=== PATIENT | female | born 1955 | race Caucasian/White ===

== ENCOUNTER 2016-09-26 14:55 | Observation (INO) | payer MEDICARE ==
[2016-09-26 14:55] VITALS: BMI 32.5
[2016-09-26 16:25] LABS: AUTOMATED BASOPHIL 0.2 % (0-2); AUTOMATED MONOCYTE 7.1 % (3-10); AUTOMATED NEUTROPHIL 71.7 % (45-76); MPV 9.5 fL (7.4-10.4)
[2016-09-26 16:35] LABS: BLOOD UREA NITROGEN 15 MG/DL (7-17); CALC CORRECTED 9.4 MG/DL (8.4-10.2); CALCIUM 9.2 MG/DL (8.4-10.2); CALCULATED OSMOLALITY 269 MOs/Kg (270-290); CHLORIDE 104 mEq/L (98-107); ETOH-MGDL < 10 mg/dL; GLUCOSE 83 MG/DL (70-99); SODIUM LEVEL 140 mEq/L (137-146); TOTAL PROTEIN 6.8 G/DL (6.3-8.2)
--- NOTE | 2016-09-26 18:05 | EDPRACDOC ---
- General Information Chief Complaint: Psychiatric Illness Stated Complaint: PSYCH IVC Time Seen by Provider: 09/26/16 17:53 Mode of Arrival: Car Home Medications: Home Medications Clonazepam [Klonopin] 1 mg PO BID 02/07/16 Allergies/Adverse Reactions: Allergies Allergy/AdvReac Type Severity Reaction Status Date / Time No Known Allergies Allergy Verified 09/26/16 15:24 - History of Present Illness Onset: ON-GOING HPI: Pt states her son IVC her due to alleged SI. Pt denies SI, HI, hallucinations. Pt c/o depression and not able to take meds due to financial reasons. C/o yeast rash to L inguinal area. Denies fever, cough, congestion, cp, sob, abd pain, n/v , changes in bowel or bladder. Reason for Seeking Treatment: Family Presents With: Reports: Depression Expresses: Denies: Suicidal Intent, Suicidal Plan, Left Suicide Note, None, SUIC , U, O Suicidal Plan: Denies: Overdose, Laceration, Gun, None, Other, U Suicidal Attempt: Denies: Laceration, N, GSW, Hanging, Carbon Monoxide, Other, U Stressors: Reports: Financial Relevant History: Reports: Depression Medication Compliance: No Able to Care for Self: Yes Able to Control Self: Yes Associated Signs and Symptoms: Reports: Depression, Hopeless ED Past Medical History - History Reviewed Yes Nurses notes reviewed and agree except as marked - Patient Medical History Musculoskeletal History: Reports: Arthritis Systemic History: Denies: Cancer - Social Medical History Smoking Status: Heavy tobacco smoker (5 or more cigarettes/day or daily pipe/ cigar) ETOH: None Substance Abuse: None EDM Review of Systems - Review of Systems Constitutional: No Symptoms Reported. negative: Fever, Chills, Weakness, Fatigue, Loss of Appetite Ears: No Symptoms Reported. negative: Pain, Hearing Loss, Drainage, Ear Pulling Throat: No Symptoms Reported. negative: Pain, Swelling Nose: No Symptoms Reported. negative: Congestion, Bleeding, Discharge, Injection, Swelling, Deformity, Ecchymosis, Tender, Abrasion, Laceration Mouth: No Symptoms Reported. negative: Pain, Drooling Respiratory: No Symptoms Reported. negative: Cough, Brassy Cough, Barky Cough, Shortness of Breath, Wheezing, Hemoptysis Cardiovascular: No Symptoms Reported. negative: Chest Pain, Palpitations, Syncope, Edema, Orthopnea, PND, Skin Mottling, Cyanosis Gastrointestinal: No Symptoms Reported. negative: Pain, Constipation, Nausea, Vomiting, Diarrhea, Melena, Formula Intolerance Genitourinary: No Symptoms Reported. negative: Dysuria, Hematuria, Frequency, Discharge, Bleeding, Testicular Pain, Neurological: No Symptoms Reported. negative: Headache, Dizziness, Seizure, Numbness, Weakness, Speech Difficulty, Gait Difficulty Musculoskeletal: No Symptoms Reported. negative: Neck, Chestwall, Ribs, Back, Shoulder, Arm, Elbow, Forearm, Wrist, Hand, Pelvis, Hip, Femur, Knee, Leg, Ankle , Foot Integumentary: Rash Allergic/Immunologic: No Symptoms Reported. negative: Hives, Itching Hematologic: No Symptoms Reported. negative: Lymphadenopathy, Easy Bruising, Easy Bleeding Psychiatric: Depression - Physical Exam Constitutional: Alert Oriented to: Time, Person, Place Last recorded Vital Signs: Last Vital Signs Temp 97.8 F 09/26/16 15:21 Pulse 65 09/26/16 15:21 Resp 20 09/26/16 15:21 BP 182/78 H 09/26/16 15:21 Pulse Ox 97 09/26/16 15:21 Oxygen Pulse Oxygen Saturation 97 O2 Device Room Air Oxygen Flow Rate Fraction of Inspired Oxygen ( FIO2) - HEENT Head: Normal ( normocephalic) Eye Exam: Normal (PERRL, EOMI, Sclera white) Oropharynx: Normal (Pharynx:Moist without exudate,Gums-no swelling) Tympanic Membrane: Normal ENT EAC: Normal TMJ: Normal Nose: No Symptoms Reported (septum midline) Neck: Normal (FROM, trachea at midline) - Respiratory/Cardiovascular Respiratory: Normal - CTA (BBS clear to auscultation without adventitious sounds ) Cardiovascular: Normal (RRR without murmur, gallop or rub) - GI Auscultation: Normal (NABS) Palpation: Normal (Soft,No rebound or guarding, non distended) Tenderness: Non tender Diamond's Sign: Negative - Musculoskeletal Back: Normal (Non-Tender) Extremities: Normal (Normal tone, Pulses 2+ No cyanosis or edema, FROM) - Integumentary Skin: Normal, Warm, Dry Lymphatics: Inguinal Erythema - Neurologic Memory Impaired: Normal Motor Function: Normal (Normal tone, Pulses 2+ No cyanosis or edema, FROM) Mood Description: Depressed Perception: Normal Initial Evaluation Apperance: Soiled Attitude: Cooperative Mood: Euthymic Affect: Congruent w/ mood Insight: Good Judgement: Good Memory Description: Intact Depressive Symptoms: Reports: Hopelessness, Sadness Delusion Description: Reports: Not Present Hallucination Type: Reports: None Hallucinations Severity: Reports: None Hallucinations affecting more than one sensory system: No - Differential Diagnosis Depression - Results 09/26/16 15:22 09/26/16 15:22 WBC 8.1 xk/uL (3.8-10.8) 09/26/16 15:22 RBC 5.20 xM/uL (4.20-5.40) 09/26/16 15:22 Hgb 15.4 g/dL (12.0-16.0) 09/26/16 15:22 Hct 45.9 % (36-47) 09/26/16 15:22 MCV 88 fL (81-99) 09/26/16 15:22 MCH 29.6 pg (27-32) 09/26/16 15:22 MCHC 33.6 g/dl (33-36) 09/26/16 15:22 RDW 13.3 % (11.5-14.5) 09/26/16 15:22 Plt Count 189 xk/uL (130-400) 09/26/16 15:22 MPV 9.5 fL (7.4-10.4) 09/26/16 15:22 Neut % (Auto) 71.7 % (45-76) 09/26/16 15:22 Lymph % (Auto) 19.0 % (17-44) 09/26/16 15:22 Stanley % (Auto) 7.1 % (3-10) 09/26/16 15:22 Eos % (Auto) 2.0 % (0-5) 09/26/16 15:22 Baso % (Auto) 0.2 % (0-2) 09/26/16 15:22 Absolute Neuts (auto) 5.75 xk/uL (1.7-8.2) 09/26/16 15:22 Absolute Lymphs (auto) 1.54 xk/uL (0.65-4.75) 09/26/16 15:22 Sodium 140 mEq/L (137-146) 09/26/16 15:22 Potassium 4.0 mEq/L (3.5-5.1) 09/26/16 15:22 Chloride 104 mEq/L (98-107) 09/26/16 15:22 Carbon Dioxide 28 mMOL/L (22-33) 09/26/16 15:22 Anion Gap 12 mEq/L (8-16) 09/26/16 15:22 BUN 15 MG/DL (7-17) 09/26/16 15:22 Creatinine 0.60 MG/DL (0.52-1.04) 09/26/16 15:22 Estimated GFR (MDRD) > 60 mL/min (>=60) 09/26/16 15:22 Glucose 83 MG/DL (70-99) 09/26/16 15:22 Calculated Osmolality 269 MOs/Kg (270-290) L 09/26/16 15:22 Calcium 9.2 MG/DL (8.4-10.2) 09/26/16 15:22 Corrected Calcium 9.4 MG/DL (8.4-10.2) 09/26/16 15:22 Total Bilirubin 0.3 MG/DL (0.2-1.3) 09/26/16 15:22 AST 17 IU/L (14-36) 09/26/16 15:22 ALT 20 IU/L (9-52) 09/26/16 15:22 Alkaline Phosphatase 111 IU/L (55-165) 09/26/16 15:22 Total Protein 6.8 G/DL (6.3-8.2) 09/26/16 15:22 Albumin 3.8 G/DL (3.5-5.0) 09/26/16 15:22 Plasma/Serum Ethyl Alc % (<0.01) 09/26/16 15:22 Lab Results 09/26/16 09/26/16 15:22 15:22 WBC 8.1 RBC 5.20 Hgb 15.4 Hct 45.9 MCV 88 MCH 29.6 MCHC 33.6 RDW 13.3 Plt Count 189 MPV 9.5 Neut % (Auto) 71.7 Lymph % (Auto) 19.0 Stanley % (Auto) 7.1 Eos % (Auto) 2.0 Baso % (Auto) 0.2 Absolute Neuts (auto) 5.75 Absolute Lymphs (auto) 1.54 Sodium 140 Potassium 4.0 Chloride 104 Carbon Dioxide 28 Anion Gap 12 BUN 15 Creatinine 0.60 Estimated GFR (MDRD) > 60 Glucose 83 Calculated Osmolality 269 L Calcium 9.2 Corrected Calcium 9.4 Total Bilirubin 0.3 AST 17 ALT 20 Alkaline Phosphatase 111 Total Protein 6.8 Albumin 3.8 Plasma/Serum Ethyl Alc - Departure Disposition: Admit to [facility] Condition: Good Final Diagnosis: Moderate major depression, single episode Education/Counseling Given To: Patient Education/Counseling Given Regarding: Diagnosis, Treatment Referrals: None,No Provider [Primary Care Provider] - One Week Prescriptions: No Action Clonazepam [Klonopin] 1 mg PO BID - Physician Consulted Behavioral Halth Time Called: 18:42 Consult Reason: mental health eval *ED Obs Orders - Orders Orders: 09/26/16 15:22 CBC W/DIFF [HEM] Stat COMPLETE METABOLIC [CHEM] Stat RPR [SER] Stat SERUM/PLASMA ETHANOL [CHEM] Stat 09/26/16 15:43 Belongings Removal Stat ED Lab Draw/Venipuncture [RC] STAT Notify Security of Patient's Location Stat Obtain full set of vital signs Stat Undress Patient [RC] STAT 09/26/16 17:57 DRUG SCREEN, URINE Stat 09/26/16 17:59 URINALYSIS [UA] Stat 09/26/16 18:07 Vital Signs-Unit Routine Routine Acetaminophen Tablet [TYLENOL Tablet] 650 mg PO Q6H PRN Ibuprofen Tablet [Motrin] 400 mg PO Q6H PRN Lorazepam [Ativan] 1 mg PO Q6H PRN Ondansetron HCl [Zofran] 4 mg PO Q6H PRN Zolpidem Tartrate [Ambien] 5 mg PO HS PRN Diet Regular Routine TU Observation Routine 09/26/16 18:08 Cancel Previous Diet Order Routine 09/26/16 19:00 Nicotine [Nicoderm] 21 mg TOP Q24H Nystatin [Mycostatin] 15 gm TOP TID 09/26/16 21:00 Nystatin [Mycostatin] 15 gm TOP TID Statement: As supervising physician I agree with this plan as developed by the Allied Health Practitioner.
[2016-09-26] MEDS ORDERED: ZOLPIDEM TARTRATE 5 MG TAB PO PRN (18:07)
[2016-09-26] MEDS ORDERED: ONDANSETRON HCL 4 MG ODT TAB PO PRN (18:07)
[2016-09-26] MEDS ORDERED: ACETAMINOPHEN 325 MG/TAB TABLET PO PRN (18:07)
[2016-09-26] MEDS ORDERED: LORAZEPAM 1 MG TAB PO PRN (18:07)
[2016-09-26] MEDS ORDERED: IBUPROFEN 400 MG TAB PO PRN (18:07)
[2016-09-26 18:18] LABS: ALL NEG? YES; MDMA* NEG (NEGATIVE); METHAMPHETAMINES NEG (NEGATIVE); OXYCODONE NEG (NEGATIVE)
[2016-09-26 18:24] LABS: LEUKOCYTES/URINE NEG (NEGATIVE); NITRITE/URINE NEG (NEGATIVE); RBC/URINE 0-2 (0-5); URINE OCCULT BLOOD 1+ (NEG/TRACE); WBC/URINE 0-2 (0-5)
[2016-09-26] MEDS ORDERED: NICOTINE 21 MG PATCH TOP SCH (19:00)
[2016-09-26] MEDS ORDERED: NYSTATIN POWDER 15 GM BOTTLE TOP SCH (19:00)
[2016-09-26] MEDS: NYSTATIN POWDER 15 GM BOTTLE TOP SCH (20:41)
[2016-09-27] MEDS: NYSTATIN POWDER 15 GM BOTTLE TOP SCH ×2 (06:15→14:19)
--- NOTE | 2016-09-27 09:04 | EDTUNOTE ---
Initial Evaluation Apperance: Soiled Attitude: Cooperative Mood: Euthymic Affect: Congruent w/ mood Insight: Good Judgement: Good Memory Description: Intact Depressive Symptoms: Reports: Hopelessness, Sadness Delusion Description: Reports: Not Present Hallucination Type: Reports: None Hallucinations Severity: Reports: None Hallucinations affecting more than one sensory system: No - SOAP Note Patient Problems: Active Problems Moderate major depression, single episode (Acute) Time Seen By Provider: 09:02 SOAP Note: Pt states her son IVC her due to alleged SI. Pt denies SI, HI, hallucinations. Pt c/o depression and not able to take meds due to financial reasons. C/o yeast rash to L inguinal area. Denies fever, cough, congestion, cp, sob, abd pain, n/v , changes in bowel or bladder. S: Patient presented with IVC paperwork from her son. Patient states she kept saying "I " at home and that is why her son took out paperwork on her. Patient states she "thinks" she was voicing suicidal thoughts. Patient denies complaints today. O: VSS, afebrile CTAB RRR Calm and cooperative A: SI Depression P: Continue management and monitoring while awaiting disposition.
--- NOTE | 2016-09-27 11:58 | TUDEPART ---
- Patient Problems (1) Moderate major depression, single episode Acute (2) Suicidal behavior R45.851 - SUICIDAL IDEATIONS Acute Time Seen By Provider: 11:57 Discussion of OBS Stay: Pt states her son IVC her due to alleged SI. Pt denies SI, HI, hallucinations. Pt c/o depression and not able to take meds due to financial reasons. C/o yeast rash to L inguinal area. Denies fever, cough, congestion, cp, sob, abd pain, n/v , changes in bowel or bladder. S: Patient presented with IVC paperwork from her son. Patient states she kept saying "I " at home and that is why her son took out paperwork on her. Patient states she "thinks" she was voicing suicidal thoughts. Patient denies complaints today. O: VSS, afebrile CTAB RRR Calm and cooperative A: SI Depression P: Continue management and monitoring while awaiting disposition. Disposition: Trans. to Other Hospital ([facility]) Education/Counseling Given To: Patient Education/Counseling Given Regarding: Diagnosis, Treatment, Prognosis, Follow Up Decision to Transfer Time: 11:58 <Simin Mendiola M - Last Filed: 09/27/16 11:57> Discussion of OBS Stay: General: Pleasant female No acute distress. Neuro: Alert Oriented, calm and cooperative HEENT: Normocephalic atraumatic. Sclerae nonicteric. Extraocular movements intact. Oral mucosa pink and moist. Neck: Supple. Nontender. Good range of motion. No masses. Trachea is midline. No cervical adenopathy. Lungs: Clear to auscultation. No rhonchi or wheezing. Heart: Regular rate and rhythm. No murmur. Abdomen: Soft, nontender, nondistended. No hepatosplenomegaly. No abdominal wall defects or masses. No guarding or rebound. Extremities: no cyanosis clubbing or edema. No palpable deformities. Skin: Warm and dry, no rashes No changes in clinical status or new information from previous documentation. Vital Signs: Temp:98.9 F HR: 83 BP: 130/70 RR: 20 Pox: 96%. Continue with current plan. Yes I personally saw and evaluated the patient. <Vladimir Pereira - Last Filed: 09/27/16 15:43> Condition: Good Follow-up / Referrals: None,No Provider [Primary Care Provider] - One Week - Physical Exam Constitutional: Alert Oriented to: Time, Person, Place Last recorded Vital Signs: Last Vital Signs Temp 98.2 F 09/27/16 05:43 Pulse 62 09/27/16 05:43 Resp 16 09/27/16 05:43 BP 140/67 09/27/16 05:43 Pulse Ox 97 09/27/16 05:43 Oxygen Pulse Oxygen Saturation 97 O2 Device Room Air Oxygen Flow Rate Fraction of Inspired Oxygen ( FIO2) - HEENT Head: Normal ( normocephalic) Eye Exam: Normal (PERRL, EOMI, Sclera white) Oropharynx: Normal (Pharynx:Moist without exudate,Gums-no swelling) Tympanic Membrane: Normal ENT EAC: Normal TMJ: Normal Nose: No Symptoms Reported (septum midline) - Respiratory/Cardiovascular Respiratory: Normal - CTA (BBS clear to auscultation without adventitious sounds ) Cardiovascular: Normal (RRR without murmur, gallop or rub) - GI Auscultation: Normal (NABS) Palpation: Normal (Soft,No rebound or guarding, non distended) Tenderness: Non tender Diamond's Sign: Negative - Musculoskeletal Back: Normal (Non-Tender) Extremities: Normal (Normal tone, Pulses 2+ No cyanosis or edema, FROM) - Integumentary Skin: Normal, Warm, Dry Lymphatics: Inguinal Erythema - Neurologic Memory Impaired: Normal Motor Function: Normal (Normal tone, Pulses 2+ No cyanosis or edema, FROM) Mood Description: Depressed Perception: Normal <Simin Mendiola - Last Filed: 09/27/16 11:57> - Physical Exam Last recorded Vital Signs: Last Vital Signs Temp 98.9 F 09/27/16 12:46 Pulse 83 09/27/16 12:46 Resp 20 09/27/16 12:46 BP 130/70 09/27/16 12:46 Pulse Ox 96 09/27/16 12:46 Oxygen Pulse Oxygen Saturation 96 O2 Device Room Air Oxygen Flow Rate Fraction of Inspired Oxygen ( FIO2) <Vladimir Pereira - Last Filed: 09/27/16 15:43>
[2016-09-27 15:57] VITALS: BP 152/71; PULSE 80; TEMP 98.7
== END 2016-09-27 15:40 ==
LOC: ED 14:55 → TUOBSINP 18:07
PROVIDERS: ADMIT Physician Assistant Medical; ATTEND Physician Assistant Medical
DX: F32.1 Major depressive disorder, single episode, moderate (principal); R45.851 Suicidal ideations
CPT/HCPCS: 36415; 80053; 80307; 81001; 85025; 86592; 99284; A9270; G0378; G0480; J3490